=== PATIENT | male | born 1950 | race Caucasian/White ===

== ENCOUNTER 2018-11-29 09:10 | Inpatient (IN) | payer OTHER, MEDICAID, BC ==
[2018-11-29] MEDS: SOD CHLORIDE 0.9% 500 ML IV (09:31)
[2018-11-29] MEDS: morphine 2 MG INJ IV ×3 (09:31→21:46)
[2018-11-29] MEDS: ONDANSETRON 4 MG INJ IV (09:31)
[2018-11-29 09:41] LABS: ADD MAN DIFF? NO
[2018-11-29 10:05] LABS: WHITE BLOOD COUNT 8.4 10^3/ul (4.8-10.8)
[2018-11-29 10:05] LABS: ANION GAP 8 (5-13); BASOPHIL # 0.1 10^3/ul (0.0-0.1); BASOPHILS % 0.8 % (0.0-2.0); BLOOD UREA NITROGEN 19 mg/dl (7-20); CALCIUM 9.3 mg/dl (8.4-10.2); CARBON DIOXIDE 29 mmol/L (21-31); CHLORIDE 102 mmol/L (97-110); CREATININE 1.16 mg/dl (0.61-1.24); EOSINOPHILS # 0.3 10^3/ul (0.0-0.5); EOSINOPHILS % 4.1 % (0.0-7.0); Estimated GFR > 60 mL/min (>60); GLUCOSE 202 mg/dl (70-220); HEMATOCRIT 38.5 % (42.0-52.0); HEMOGLOBIN 12.4 g/dl (14.0-18.0); LYMPHOCYTES # 2.1 10^3/ul (0.8-2.9); LYMPHOCYTES % 25.3 % (15.0-51.0); MEAN CORPUSCULAR HEMOGLOBIN 31.4 pg (29.0-33.0); MEAN CORPUSCULAR HGB CONC 32.2 g/dl (32.0-37.0); MEAN CORPUSCULAR VOLUME 97.5 fl (82.0-101.0); MEAN PLATELET VOLUME 9.5 fl (7.4-10.4); MONOCYTE # 0.7 10^3/ul (0.3-0.9); MONOCYTES % 8.2 % (0.0-11.0); NEUTROPHIL # 5.1 10^3/ul (1.6-7.5); NEUTROPHILS % 61.4 % (39.0-77.0); PLATELET COUNT 221 10^3/UL (140-415); POTASSIUM 5.1 mmol/L (3.5-5.1); RED BLOOD COUNT 3.95 10^6/ul (4.70-6.10); RED CELL DISTRIBUTION WIDTH 11.7 % (11.5-14.5); SODIUM 139 mmol/L (135-144)
[2018-11-29 10:07] LABS: INR 0.96; PROTIME 12.9 Sec (11.9-14.9)
[2018-11-29] MEDS: HYDROmorphONE 0.5 MG/0.5 ML SYG IV ×2 (11:19→11:31)
[2018-11-29] MEDS ORDERED: ONDANSETRON 4 MG INJ IV (13:00)
[2018-11-29] MEDS ORDERED: ACETAMINOPHEN 325 MG TAB PO ×2 (13:00→13:30)
[2018-11-29] MEDS ORDERED: NACL 0.9% 3 ML SYG IV (13:30)
[2018-11-29] MEDS ORDERED: DOCUSATE SODIUM 100 MG CAP PO (13:30)
[2018-11-29] MEDS ORDERED: HYDROCODONE/APAP (5/325) TAB PO (13:30)
[2018-11-29] MEDS ORDERED: MECLIZINE 25 MG TAB PO (13:30)
[2018-11-29 13:41] LABS: HEMOGLOBIN A1C 7.2 % (0-5.9)
[2018-11-29] MEDS ORDERED: DEXTROSE 50% 50 ML SYRINGE IV ×2 (14:30)
[2018-11-29] MEDS ORDERED: GLUCOSE GEL 15 GRAM TUBE BUCCAL (14:30)
[2018-11-29] MEDS ORDERED: GLUCOSE GEL 15 GRAM TUBE PO ×2 (14:30)
[2018-11-29] MEDS ORDERED: GLUCAGON 1 MG INJ IM (14:30)
[2018-11-29] MEDS: DEXTROSE 5%-0.45% NACL 1,000 ML IV (16:22)
[2018-11-29] MEDS: INSULIN ASPART [NOVOLOG] 3 ML PEN SC ×2 (17:17→21:40)
[2018-11-29] MEDS: HYDROCODONE/APAP (5/325) TAB PO (17:24)
[2018-11-29] MEDS: HEPARIN 5,000 UNIT/1 ML VIAL SC (18:33)
[2018-11-29] MEDS: INSULIN GLARGINE [LANTus] (100 UNITS/ML) SYG SC (20:26)
[2018-11-29] MEDS: ATORVASTATIN 20 MG TAB PO (20:27)
[2018-11-30] MEDS: LORAZEPAM 1 MG TAB PO (00:59)
[2018-11-30] MEDS: morphine LIQ (10 MG/5 ML) CUP PO ×4 (01:00→15:27)
[2018-11-30] MEDS ORDERED: PANTOPRAZOLE (EC) 40 MG TAB PO (04:55)
[2018-11-30] MEDS: PANTOPRAZOLE (EC) 40 MG TAB PO (05:40)
[2018-11-30 08:31] LABS: ADD MAN DIFF? NO
[2018-11-30 08:33] LABS: WHITE BLOOD COUNT 11.4 10^3/ul (4.8-10.8)
[2018-11-30 08:33] LABS: BASOPHILS % 0.3 % (0.0-2.0); EOSINOPHILS % 0.2 % (0.0-7.0); HEMATOCRIT 28.1 % (42.0-52.0); HEMOGLOBIN 8.9 g/dl (14.0-18.0); LYMPHOCYTES # 1.8 10^3/ul (0.8-2.9); LYMPHOCYTES % 16.1 % (15.0-51.0); MEAN CORPUSCULAR HGB CONC 31.7 g/dl (32.0-37.0); MEAN CORPUSCULAR VOLUME 97.9 fl (82.0-101.0); MEAN PLATELET VOLUME 9.2 fl (7.4-10.4); MONOCYTE # 1.1 10^3/ul (0.3-0.9); NEUTROPHIL # 8.3 10^3/ul (1.6-7.5); PLATELET COUNT 179 10^3/UL (140-415); RED BLOOD COUNT 2.87 10^6/ul (4.70-6.10); RED CELL DISTRIBUTION WIDTH 11.9 % (11.5-14.5)
[2018-11-30] MEDS: ESCITALOPRAM 10 MG TAB PO (08:42)
[2018-11-30] MEDS: BUPROPION (XL) 150 MG TAB PO (08:42)
[2018-11-30] MEDS: DULOXETINE 30 MG CAP DR PO (08:42)
[2018-11-30] MEDS: INSULIN ASPART [NOVOLOG] 3 ML PEN SC ×4 (08:46→21:00)
[2018-11-30] MEDS: HEPARIN 5,000 UNIT/1 ML VIAL SC ×2 (08:47→21:00)
[2018-11-30 08:56] LABS: ANION GAP 4 (5-13); BLOOD UREA NITROGEN 40 mg/dl (7-20); CALCIUM 8.2 mg/dl (8.4-10.2); CARBON DIOXIDE 30 mmol/L (21-31); CHLORIDE 103 mmol/L (97-110); CREATININE 2.34 mg/dl (0.61-1.24); Estimated GFR 28 mL/min (>60); GLUCOSE 152 mg/dl (70-220); MAGNESIUM 1.8 mg/dl (1.7-2.5); PHOSPHORUS 3.9 mg/dl (2.5-4.9); SODIUM 137 mmol/L (135-144)
[2018-11-30] MEDS ORDERED: ASPIRIN (EC) 81 MG TAB PO (09:00)
[2018-11-30] MEDS: MAGNESIUM HYDROXIDE 30ML CUP PO (12:26)
[2018-11-30] MEDS: DEXTROSE 5%-0.45% NACL 1,000 ML IV (14:07)
[2018-11-30] MEDS: POLYMYXIN/BACITRACIN 1L IRRIG IRR ×2 (19:30→22:35)
[2018-11-30] MEDS ORDERED: morphine SULFATE/PF (10 MG/10 ML) INJ (19:32)
[2018-11-30] MEDS ORDERED: MIDAZOLAM 1 MG/ML 2 ML INJ (19:32)
[2018-11-30] MEDS ORDERED: ROCURONIUM 50 MG INJ ×2 (19:32→21:15)
[2018-11-30] MEDS ORDERED: CEFAZOLIN 1 GM INJ (19:32)
[2018-11-30] MEDS ORDERED: PROPOFOL 20 ML (19:32)
[2018-11-30] MEDS ORDERED: ROPIVACAINE 0.5 % 30 ML VIAL (20:22)
[2018-11-30] MEDS ORDERED: PHENYLephrine (100 MCG/ML) 5ML SYG (20:28)
[2018-11-30] MEDS ORDERED: PHENYLephrine 10 MG INJ (20:32)
[2018-11-30] MEDS ORDERED: METOCLOPRAMIDE 10 MG INJ (20:57)
[2018-11-30] MEDS ORDERED: ONDANSETRON 4 MG INJ (20:57)
[2018-11-30] MEDS ORDERED: DEXAMETHASONE 4 MG/ML 5 ML INJ (20:57)
[2018-11-30] MEDS: INSULIN GLARGINE [LANTus] (100 UNITS/ML) SYG SC (21:00)
[2018-11-30] MEDS: ATORVASTATIN 20 MG TAB PO (21:00)
[2018-11-30] MEDS ORDERED: SUCCINYLCHOLINE CHLORIDE 100 MG/5 ML SYG IV (21:15)
[2018-11-30] MEDS ORDERED: HETASTARCH 6% NACL 500 ML (21:26)
[2018-11-30] MEDS ORDERED: ALBUMIN HUMAN 5% 500 ML (21:26)
[2018-11-30] MEDS ORDERED: HYDROmorphONE 1 MG/5 ML IV SYRINGE IV ×3 (23:30)
[2018-11-30] MEDS ORDERED: ACETAMINOPHEN 500 MG TAB PO (23:30)
[2018-11-30] MEDS ORDERED: EPHEDrine SULFATE 50 MG/5 ML SYG IV (23:30)
[2018-11-30] MEDS ORDERED: LABETALOL HCL 20MG INJ IV (23:30)
[2018-11-30] MEDS ORDERED: OXYCODONE/ACETAMINOPHEN (5/325) TAB PO ×2 (23:30)
[2018-11-30] MEDS ORDERED: DIPHENHYDRAMINE 50 MG INJ IV ×2 (23:30)
[2018-11-30] MEDS ORDERED: hydrALAzine 20 MG INJ IV (23:30)
[2018-11-30] MEDS ORDERED: HYDROmorphONE 0.5 MG/0.5 ML SYG IV ×2 (23:30)
[2018-11-30] MEDS ORDERED: FENTAnyl 50 MCG/ML VIAL IV ×3 (23:30)
[2018-11-30] MEDS ORDERED: HYDROCODONE/APAP (5/325) TAB PO (23:30)
[2018-11-30] MEDS ORDERED: ONDANSETRON 4 MG INJ IV ×2 (23:30)
[2018-11-30] MEDS ORDERED: ALBUMIN HUMAN 5% 250 ML IV (23:30)
[2018-11-30] MEDS ORDERED: METOCLOPRAMIDE 10 MG INJ IV (23:30)
[2018-11-30] MEDS ORDERED: ALBUTEROL 0.083% (NEB) 2.5 MG/3 ML AMP HHN (23:30)
[2018-11-30] MEDS ORDERED: NALBUPHINE HCL (10 MG/1 ML) INJ IV (23:30)
[2018-11-30] MEDS ORDERED: MEPERIDINE 25 MG INJ IV (23:30)
[2018-11-30] MEDS ORDERED: ALBUMIN HUMAN 25% 100 ML (23:51)
[2018-11-30 23:56] LABS: ADD MAN DIFF? NO
[2018-11-30 23:58] LABS: ABNORMAL IP MESSAGE 1; BASOPHILS % 0.3 % (0.0-2.0); HEMATOCRIT 19.8 % (42.0-52.0); LYMPHOCYTES # 0.8 10^3/ul (0.8-2.9); LYMPHOCYTES % 10.3 % (15.0-51.0); MEAN CORPUSCULAR HEMOGLOBIN 31.5 pg (29.0-33.0); MEAN CORPUSCULAR HGB CONC 31.3 g/dl (32.0-37.0); MEAN CORPUSCULAR VOLUME 100.5 fl (82.0-101.0); MEAN PLATELET VOLUME 9.4 fl (7.4-10.4); MONOCYTE # 0.5 10^3/ul (0.3-0.9); NEUTROPHIL # 6.5 10^3/ul (1.6-7.5); PLATELET COUNT 121 10^3/UL (140-415); POSITIVE DIFF @See below; RED BLOOD COUNT 1.97 10^6/ul (4.70-6.10); RED CELL DISTRIBUTION WIDTH 12.1 % (11.5-14.5)
[2018-11-30 23:58] LABS: WHITE BLOOD COUNT 7.9 10^3/ul (4.8-10.8)
[2018-12-01 00:10] LABS: HEMOGLOBIN 6.2 g/dl (14.0-18.0)
[2018-12-01 00:12] LABS: PATH REVIEW? YES
[2018-12-01] MEDS ORDERED: CEFAZOLIN 1 GM INJ (00:12)
[2018-12-01] MEDS ORDERED: SUGAMMADEX SODIUM 200 MG/2 ML VIAL IV (00:35)
[2018-12-01] MEDS ORDERED: oxyCODONE 5 MG TAB PO ×2 (01:00)
[2018-12-01] MEDS ORDERED: NACL 0.9% 3 ML SYG IV (01:00)
[2018-12-01] MEDS ORDERED: HYDROmorphONE 1 MG/ML SYG IV (01:00)
[2018-12-01] MEDS ORDERED: FUROSEMIDE 20 MG INJ (01:01)
[2018-12-01] MEDS ORDERED: ROCURONIUM 50 MG INJ (01:39)
[2018-12-01] MEDS ORDERED: NALOXONE (0.4 MG/ML) INJ (01:39)
[2018-12-01] MEDS ORDERED: SUCCINYLCHOLINE CHLORIDE 100 MG/5 ML SYG IV (01:39)
[2018-12-01] MEDS: SOD CHLORIDE 0.9% 1,000 ML IV ×3 (01:52→14:02)
[2018-12-01] MEDS ORDERED: HYDROmorphONE 0.5 MG/0.5 ML SYG IV ×3 (02:00)
[2018-12-01] MEDS ORDERED: DIPHENHYDRAMINE 50 MG INJ IV (02:00)
[2018-12-01] MEDS ORDERED: EPHEDrine SULFATE 50 MG/5 ML SYG IV (02:00)
[2018-12-01] MEDS ORDERED: ONDANSETRON 4 MG INJ IV (02:00)
[2018-12-01] MEDS ORDERED: LABETALOL HCL 20MG INJ IV (02:00)
[2018-12-01] MEDS ORDERED: MEPERIDINE 25 MG INJ IV (02:00)
[2018-12-01] MEDS ORDERED: METOCLOPRAMIDE 10 MG INJ IV (02:00)
[2018-12-01] MEDS ORDERED: PIPER-TAZO 3.375 GM IV (PMX) 100 ML IVPB (02:00)
[2018-12-01] MEDS ORDERED: FENTAnyl 50 MCG/ML VIAL IV ×3 (02:00)
[2018-12-01] MEDS ORDERED: ALBUTEROL 0.083% (NEB) 2.5 MG/3 ML AMP HHN (02:00)
[2018-12-01] MEDS ORDERED: hydrALAzine 20 MG INJ IV (02:00)
[2018-12-01] MEDS: NALOXONE (0.4 MG/ML) INJ IV (02:10)
[2018-12-01] MEDS: FUROSEMIDE 20 MG INJ IV (02:12)
[2018-12-01] MEDS: CEFAZOLIN 2 GM/50 ML (PMX) 50 ML IVPB ×3 (02:28→17:24)
[2018-12-01 02:52] LABS: AADO2 Arterial 570.8 mmHg (7.0-24.0); Allen Test ACCEPTAB; Arterial Base Excess -7.8 mmol/L (-3.0-3); Arterial Blood Gas Oxygen Sat 93.8 mmHG (95.0-98.0); Arterial COHb 0.9 % (0.0-3.0); Arterial Fraction of Oxyhgb 92.7 % (93.0-99.0); Arterial HCO3 20.2 mmol/L (22.0-26.0); Arterial MetHb 0.3 % (0.0-1.5); Arterial pCO2 54.3 mmhg (35-45); MODE VENT - AC; Site Right Radial
[2018-12-01] MEDS: PIPER-TAZO 2.25 GM/NS 50 ML IVPB ×4 (03:09→18:11)
[2018-12-01 05:29] LABS: ADD MAN DIFF? NO
[2018-12-01 05:34] LABS: WHITE BLOOD COUNT 7.2 10^3/ul (4.8-10.8)
[2018-12-01 05:34] LABS: ABNORMAL IP MESSAGE 1; BASOPHILS % 0.4 % (0.0-2.0); HEMATOCRIT 31.5 % (42.0-52.0); HEMOGLOBIN 9.8 g/dl (14.0-18.0); LYMPHOCYTES # 0.5 10^3/ul (0.8-2.9); LYMPHOCYTES % 6.4 % (15.0-51.0); MEAN CORPUSCULAR HEMOGLOBIN 30.4 pg (29.0-33.0); MEAN CORPUSCULAR HGB CONC 31.1 g/dl (32.0-37.0); MEAN CORPUSCULAR VOLUME 97.8 fl (82.0-101.0); MEAN PLATELET VOLUME 10.2 fl (7.4-10.4); MONOCYTE # 0.4 10^3/ul (0.3-0.9); MONOCYTES % 5.7 % (0.0-11.0); NEUTROPHIL # 6.3 10^3/ul (1.6-7.5); NEUTROPHILS % 87.1 % (39.0-77.0); PLATELET COUNT 104 10^3/UL (140-415); POSITIVE DIFF @See below; RED BLOOD COUNT 3.22 10^6/ul (4.70-6.10); RED CELL DISTRIBUTION WIDTH 13.9 % (11.5-14.5)
[2018-12-01 05:45] LABS: ANION GAP 13 (5-13); BLOOD UREA NITROGEN 42 mg/dl (7-20); CALCIUM 6.7 mg/dl (8.4-10.2); CARBON DIOXIDE 21 mmol/L (21-31); CHLORIDE 105 mmol/L (97-110); CREATININE 1.53 mg/dl (0.61-1.24); Estimated GFR 45 mL/min (>60); GLUCOSE 313 mg/dl (70-220); POTASSIUM 5.5 mmol/L (3.5-5.1); SODIUM 139 mmol/L (135-144)
[2018-12-01] MEDS: PANTOPRAZOLE (EC) 40 MG TAB PO (06:46)
[2018-12-01 08:03] LABS: AADO2 Arterial 584.8 mmHg (7.0-24.0); Allen Test ACCEPTAB; Arterial Base Excess -7.5 mmol/L (-3.0-3); Arterial Blood Gas Oxygen Sat 94.7 mmHG (95.0-98.0); Arterial COHb 0.1 % (0.0-3.0); Arterial Fraction of Oxyhgb 94.2 % (93.0-99.0); Arterial HCO3 19.3 mmol/L (22.0-26.0); Arterial MetHb 0.4 % (0.0-1.5); Arterial pCO2 44.9 mmhg (35-45); MODE VENT - AC; Site Right Radial
[2018-12-01] MEDS: HEPARIN 5,000 UNIT/1 ML VIAL SC (09:00)
[2018-12-01] MEDS: ENOXAPARIN 40 MG/0.4 ML SYG SC (09:00)
[2018-12-01] MEDS: INSULIN ASPART [NOVOLOG] 3 ML PEN SC ×3 (09:14→16:21)
[2018-12-01] MEDS: BUPROPION (XL) 150 MG TAB PO (09:32)
[2018-12-01] MEDS: DULOXETINE 30 MG CAP DR PO (09:32)
[2018-12-01] MEDS: ESCITALOPRAM 10 MG TAB PO (09:33)
[2018-12-01 09:57] LABS: ANISOCYTOSIS 2+ (0-0); BAND NEUTROPHILS #M 2.8 10^3/ul (0.0-0.6); BAND NEUTROPHILS % (M) 40 % (0-4); BURR CELLS 1+ (0-0); GIANT THROMBO% (M) 1 % (0-0); LYMPHOCYTES #M 0.4 10^3/ul (0.8-2.9); LYMPHOCYTES % (M) 6 % (15-51); METAMYELOCYTES #M 0.1 10^3/ul (0.0-0.0); METAMYELOCYTES %M 2 % (0-0); MICROCYTOSIS 1+ (0-0); MONOCYTE #M 0.3 10^3/ul (0.3-0.9); MONOCYTES % (M) 5 % (0-11); PLATELET ESTIMATE DECREASED; POIKILOCYTOSIS 2+ (0-0); POLYCHROMASIA 1+ (0-0); SEG NEUT #M 3.6 10^3/ul (1.6-7.5); SEGMENTED NEUTROPHILS (M) % 47 % (39-77); SMUDGE%M 3 % (0-0)
[2018-12-01] MEDS: LIDOCAINE 1% (MPF) 5 ML VIAL SC (10:00)
[2018-12-01] MEDS: SOD CHLORIDE 0.9% 500 ML IV (12:09)
[2018-12-01] MEDS ORDERED: NORepinephrine 8MG/250 ML (PMX 250 ML (13:03)
[2018-12-01] MEDS: FENTAnyl (DRIP) 1000 mcg/100mL 100 ML IV (13:09)
[2018-12-01] MEDS: NORepinephrine 8MG/250 ML (PMX 250 ML IV (13:10)
[2018-12-01 14:32] LABS: WHITE BLOOD COUNT 10.7 10^3/ul (4.8-10.8)
[2018-12-01 14:32] LABS: ABNORMAL IP MESSAGE 1; HEMATOCRIT 24.8 % (42.0-52.0); HEMOGLOBIN 7.9 g/dl (14.0-18.0); MEAN CORPUSCULAR HEMOGLOBIN 30.5 pg (29.0-33.0); MEAN CORPUSCULAR HGB CONC 31.9 g/dl (32.0-37.0); MEAN CORPUSCULAR VOLUME 95.8 fl (82.0-101.0); MEAN PLATELET VOLUME 10.6 fl (7.4-10.4); PLATELET COUNT 109 10^3/UL (140-415); POSITIVE DIFF @See below; RED BLOOD COUNT 2.59 10^6/ul (4.70-6.10); RED CELL DISTRIBUTION WIDTH 14.5 % (11.5-14.5)
[2018-12-01 14:37] LABS: ADD MAN DIFF? YES
[2018-12-01] MEDS: ACCU-CHEK XX ×10 (14:52→23:00)
[2018-12-01] MEDS: INSULIN HUMAN REGULAR 100 UNIT in SOD CHLORIDE 0.9% 99 ML IV (14:54)
[2018-12-01 14:58] LABS: ANION GAP 11 (5-13); BLOOD UREA NITROGEN 52 mg/dl (7-20); CALCIUM 6.4 mg/dl (8.4-10.2); CARBON DIOXIDE 21 mmol/L (21-31); CHLORIDE 108 mmol/L (97-110); CREATININE 2.02 mg/dl (0.61-1.24); Estimated GFR 33 mL/min (>60); GLUCOSE 275 mg/dl (70-220); POTASSIUM 4.3 mmol/L (3.5-5.1); SODIUM 140 mmol/L (135-144)
[2018-12-01 15:50] LABS: AADO2 Arterial 284.8 mmHg (7.0-24.0); Allen Test ACCEPTAB; Arterial Base Excess -3.1 mmol/L (-3.0-3); Arterial COHb 0.3 % (0.0-3.0); Arterial Fraction of Oxyhgb 96.2 % (93.0-99.0); Arterial HCO3 21.2 mmol/L (22.0-26.0); Arterial MetHb 0.5 % (0.0-1.5); Arterial pCO2 34.6 mmhg (35-45); MODE VENT - AC; Site Right Radial
[2018-12-01] MEDS: ATORVASTATIN 20 MG TAB PO (21:23)
[2018-12-01 23:22] LABS: ACANTHOCYTES 1+ (0-0); ANISOCYTOSIS 1+ (0-0); BAND NEUTROPHILS #M 4.8 10^3/ul (0.0-0.6); BAND NEUTROPHILS % (M) 45 % (0-4); BURR CELLS 1+ (0-0); GIANT THROMBO% (M) 2 % (0-0); LYMPHOCYTES #M 1.3 10^3/ul (0.8-2.9); LYMPHOCYTES % (M) 13 % (15-51); METAMYELOCYTES #M 0.2 10^3/ul (0.0-0.0); METAMYELOCYTES %M 2 % (0-0); MONOCYTE #M 0.1 10^3/ul (0.3-0.9); MONOCYTES % (M) 1 % (0-11); PLATELET ESTIMATE SIG DECREASED; POIKILOCYTOSIS 3+ (0-0); POLYCHROMASIA 1+ (0-0); SEG NEUT #M 4.7 10^3/ul (1.6-7.5); SEGMENTED NEUTROPHILS (M) % 39 % (39-77); SMUDGE%M 10 % (0-0)
[2018-12-02] MEDS: PIPER-TAZO 2.25 GM/NS 50 ML IVPB ×4 (00:10→18:18)
[2018-12-02] MEDS: ACCU-CHEK XX ×24 (01:00→23:00)
[2018-12-02] MEDS: SOD CHLORIDE 0.9% 1,000 ML IV (01:35)
[2018-12-02] MEDS: PANTOPRAZOLE 40 MG INJ IV (05:13)
[2018-12-02 05:34] LABS: INR 1.67; PROTIME 19.8 Sec (11.9-14.9); PT RATIO 1.5
[2018-12-02 06:15] LABS: ABNORMAL IP MESSAGE 1; HEMATOCRIT 21.2 % (42.0-52.0); MEAN CORPUSCULAR HGB CONC 32.1 g/dl (32.0-37.0); MEAN CORPUSCULAR VOLUME 93.4 fl (82.0-101.0); MEAN PLATELET VOLUME 10.3 fl (7.4-10.4); PLATELET COUNT 102 10^3/UL (140-415); POSITIVE DIFF @See below; RED BLOOD COUNT 2.27 10^6/ul (4.70-6.10); RED CELL DISTRIBUTION WIDTH 14.6 % (11.5-14.5)
[2018-12-02 06:17] LABS: ANION GAP 9 (5-13); BLOOD UREA NITROGEN 53 mg/dl (7-20); CALCIUM 6.5 mg/dl (8.4-10.2); CARBON DIOXIDE 22 mmol/L (21-31); CHLORIDE 112 mmol/L (97-110); CREATININE 1.81 mg/dl (0.61-1.24); Estimated GFR 37 mL/min (>60); GLUCOSE 108 mg/dl (70-220); POTASSIUM 4.2 mmol/L (3.5-5.1); SODIUM 143 mmol/L (135-144)
[2018-12-02 06:25] LABS: HEMOGLOBIN 6.8 g/dl (14.0-18.0)
[2018-12-02 06:26] LABS: ADD MAN DIFF? YES
[2018-12-02] MEDS: FENTAnyl (DRIP) 1000 mcg/100mL 100 ML IV ×2 (06:50→23:36)
[2018-12-02 07:59] LABS: BAND NEUTROPHILS % (M) 28 % (0-4); LYMPHOCYTES #M 3.1 10^3/ul (0.8-2.9); LYMPHOCYTES % (M) 29 % (15-51); MICROCYTOSIS 1+ (0-0); MONOCYTE #M 0.3 10^3/ul (0.3-0.9); MONOCYTES % (M) 3 % (0-11); MYELOCYTES #M 0.1 10^3/ul (0.0-0.0); MYELOCYTES % (M) 1 % (0-0); PLATELET ESTIMATE DECREASED; REACTIVE LYMPHOCYTES #M 0.1 10^3/ul (0.0-0.0); REACTIVE LYMPHOCYTES% (M) 1 % (0-0); SEG NEUT #M 4.5 10^3/ul (1.6-7.5); SEGMENTED NEUTROPHILS (M) % 38 % (39-77); SMUDGE%M 8 % (0-0); SPHEROCYTES 1+ (0-0); TARGET CELLS 1+ (0-0)
[2018-12-02 08:33] LABS: AADO2 Arterial 152.4 mmHg (7.0-24.0); Allen Test ACCEPTAB; Arterial Base Excess -0.9 mmol/L (-3.0-3); Arterial Blood Gas Oxygen Sat 96.2 mmHG (95.0-98.0); Arterial COHb 0.5 % (0.0-3.0); Arterial Fraction of Oxyhgb 95.1 % (93.0-99.0); Arterial HCO3 23.4 mmol/L (22.0-26.0); Arterial MetHb 0.6 % (0.0-1.5); Arterial pCO2 36.5 mmhg (35-45); MODE VENT - AC; Site Right Radial
[2018-12-02] MEDS: DULOXETINE 30 MG CAP DR PO (08:48)
[2018-12-02] MEDS: ESCITALOPRAM 10 MG TAB PO (08:48)
[2018-12-02] MEDS: BUPROPION (XL) 150 MG TAB PO (08:48)
[2018-12-02] MEDS: ENOXAPARIN 40 MG/0.4 ML SYG SC (09:00)
[2018-12-02 10:14] LABS: IMMEDIATE SPIN CROSSMATCH 1
[2018-12-02] MEDS: FUROSEMIDE 20 MG INJ IV (10:46)
[2018-12-02] MEDS: PHYTONADIONE 10 MG in DEXTROSE 5% 50 ML IVPB (11:11)
[2018-12-02] MEDS: CALCIUM GLUCONATE 10% 2 GM in DEXTROSE 5% 100 ML IVPB (11:47)
[2018-12-02 15:19] LABS: D-DIMER 3818.94 ng/ml (<460)
[2018-12-02 16:44] LABS: FIBRIN SPLIT PRODUCT >10 and <40 ug/ml (<10)
[2018-12-02 16:45] LABS: SODIUM,URINE RANDOM 53 mmol/L (30-90)
[2018-12-02 16:46] LABS: IMMEDIATE SPIN CROSSMATCH 1 4
[2018-12-02 16:47] LABS: CREATININE,URINE RANDOM 65.14 mg/dl (20-370)
[2018-12-02 19:05] LABS: WHITE BLOOD COUNT 10.5 10^3/ul (4.8-10.8)
[2018-12-02 19:05] LABS: HEMATOCRIT 26.9 % (42.0-52.0); HEMOGLOBIN 8.8 g/dl (14.0-18.0); MEAN CORPUSCULAR HEMOGLOBIN 30.1 pg (29.0-33.0); MEAN CORPUSCULAR HGB CONC 32.7 g/dl (32.0-37.0); MEAN CORPUSCULAR VOLUME 92.1 fl (82.0-101.0); MEAN PLATELET VOLUME 10.3 fl (7.4-10.4); NUCLEATED RED BLOOD CELLS% 0.4 /100WBC (0.0-0.0); PLATELET COUNT 102 10^3/UL (140-415); POSITIVE DIFF @See below; RED BLOOD COUNT 2.92 10^6/ul (4.70-6.10); RED CELL DISTRIBUTION WIDTH 15.4 % (11.5-14.5)
[2018-12-02 19:12] LABS: ADD MAN DIFF? YES
[2018-12-02 19:49] LABS: ANISOCYTOSIS 1+ (0-0); BAND NEUTROPHILS #M 2.3 10^3/ul (0.0-0.6); BAND NEUTROPHILS % (M) 22 % (0-4); ERYTHROBLAST% (NRBC) (M) 2 % (0-0); GIANT THROMBO% (M) 2 % (0-0); LYMPHOCYTES #M 1.9 10^3/ul (0.8-2.9); LYMPHOCYTES % (M) 19 % (15-51); MONOCYTE #M 0.7 10^3/ul (0.3-0.9); MONOCYTES % (M) 7 % (0-11); PLATELET ESTIMATE DECREASED; POLYCHROMASIA 1+ (0-0); SEG NEUT #M 5.7 10^3/ul (1.6-7.5); SEGMENTED NEUTROPHILS (M) % 52 % (39-77); SMUDGE%M 4 % (0-0)
[2018-12-02] MEDS: INSULIN GLARGINE [LANTus] (100 UNITS/ML) SYG SC (21:56)
[2018-12-02] MEDS: ATORVASTATIN 20 MG TAB PO (21:57)
[2018-12-03] MEDS: PIPER-TAZO 2.25 GM/NS 50 ML IVPB ×3 (01:23→11:42)
[2018-12-03] MEDS: PANTOPRAZOLE 40 MG INJ IV (05:19)
[2018-12-03] MEDS: SOD CHLORIDE 0.9% 1,000 ML IV ×2 (05:19→07:40)
[2018-12-03 05:29] LABS: ADD MAN DIFF? NO
[2018-12-03] MEDS: ACCU-CHEK XX ×2 (05:30→09:16)
[2018-12-03 05:42] LABS: BASOPHILS % 0.1 % (0.0-2.0); EOSINOPHILS % 0.2 % (0.0-7.0); HEMATOCRIT 27.8 % (42.0-52.0); LYMPHOCYTES # 1.4 10^3/ul (0.8-2.9); LYMPHOCYTES % 12.6 % (15.0-51.0); MEAN CORPUSCULAR HEMOGLOBIN 29.6 pg (29.0-33.0); MEAN CORPUSCULAR HGB CONC 32.4 g/dl (32.0-37.0); MEAN CORPUSCULAR VOLUME 91.4 fl (82.0-101.0); MEAN PLATELET VOLUME 10.4 fl (7.4-10.4); MONOCYTE # 0.9 10^3/ul (0.3-0.9); MONOCYTES % 7.8 % (0.0-11.0); NEUTROPHIL # 8.6 10^3/ul (1.6-7.5); NEUTROPHILS % 78.6 % (39.0-77.0); NUCLEATED RED BLOOD CELLS% 0.4 /100WBC (0.0-0.0); PLATELET COUNT 113 10^3/UL (140-415); POSITIVE DIFF @See below; RED BLOOD COUNT 3.04 10^6/ul (4.70-6.10); RED CELL DISTRIBUTION WIDTH 15.4 % (11.5-14.5)
[2018-12-03 05:42] LABS: WHITE BLOOD COUNT 10.9 10^3/ul (4.8-10.8)
[2018-12-03 05:50] LABS: ANION GAP 6 (5-13); BLOOD UREA NITROGEN 37 mg/dl (7-20); CALCIUM 7.6 mg/dl (8.4-10.2); CARBON DIOXIDE 26 mmol/L (21-31); CHLORIDE 115 mmol/L (97-110); CREATININE 1.19 mg/dl (0.61-1.24); Estimated GFR > 60 mL/min (>60); GLUCOSE 83 mg/dl (70-220); POTASSIUM 3.8 mmol/L (3.5-5.1); SODIUM 147 mmol/L (135-144)
[2018-12-03 05:58] LABS: CREATINE KINASE 1019 IU/L (23-200)
[2018-12-03 05:58] LABS: URIC ACID 5.1 mg/dl (3.1-7.9)
[2018-12-03 06:12] LABS: INR 1.18; PROTIME 15.1 Sec (11.9-14.9); PT RATIO 1.2
[2018-12-03 07:04] LABS: ALANINE AMINOTRANSFERASE 23 IU/L (13-69); ALBUMIN 2.7 g/dl (3.3-4.9); ALKALINE PHOSPHATASE 47 IU/L (42-121); ASPARTATE AMINO TRANSFERASE 41 IU/L (15-46); BILIRUBIN,INDIRECT 0.5 mg/dl (0-1.1); BILIRUBIN,TOTAL 0.5 mg/dl (0.2-1.3); TOTAL PROTEIN 5.9 g/dl (6.1-8.1)
[2018-12-03] MEDS: morphine 2 MG INJ IV (08:20)
[2018-12-03] MEDS: INSULIN ASPART [NOVOLOG] 3 ML PEN SC ×4 (09:00→21:00)
[2018-12-03] MEDS ORDERED: D5W-0.45 NACL + KCL 20 MEQ 1,000 ML IV (09:30)
[2018-12-03] MEDS ORDERED: 1/2 NS + KCL 20 MEQ 1,000 ML IV (09:30)
[2018-12-03] MEDS: PHYTONADIONE 10 MG in DEXTROSE 5% 50 ML IVPB (09:41)
[2018-12-03] MEDS: ESCITALOPRAM 10 MG TAB PO (09:41)
[2018-12-03 09:43] LABS: AADO2 Arterial 100.9 mmHg (7.0-24.0); Allen Test ACCEPTAB; Arterial Base Excess -0.1 mmol/L (-3.0-3); Arterial Blood Gas Oxygen Sat 90.5 mmHG (95.0-98.0); Arterial COHb 0 % (0.0-3.0); Arterial Fraction of Oxyhgb 90.3 % (93.0-99.0); Arterial HCO3 24.9 mmol/L (22.0-26.0); Arterial MetHb 0.2 % (0.0-1.5); Blood Gas PS 10; MODE VENT - CPAP; Site Right Radial
[2018-12-03 10:12] LABS: ANISOCYTOSIS 1+ (0-0); BAND NEUTROPHILS #M 1.4 10^3/ul (0.0-0.6); BAND NEUTROPHILS % (M) 13 % (0-4); LYMPHOCYTES % (M) 10 % (15-51); MONOCYTE #M 0.4 10^3/ul (0.3-0.9); MONOCYTES % (M) 4 % (0-11); PLATELET ESTIMATE DECREASED; POIKILOCYTOSIS 1+ (0-0); POLYCHROMASIA 3+ (0-0); SEG NEUT #M 8.1 10^3/ul (1.6-7.5); SEGMENTED NEUTROPHILS (M) % 73 % (39-77); TARGET CELLS 1+ (0-0)
[2018-12-03] MEDS: oxyCODONE 5 MG TAB PO (10:16)
[2018-12-03] MEDS: DULOXETINE 30 MG CAP DR PO (10:17)
[2018-12-03] MEDS: BUPROPION (XL) 150 MG TAB PO (10:17)
[2018-12-03] MEDS: D5W-0.45 NACL + KCL 20 MEQ 1,000 ML IV ×2 (10:30→21:18)
[2018-12-03] MEDS ORDERED: BISACODYL 10 MG SUPP PR (11:00)
[2018-12-03] MEDS ORDERED: POLYETHYLENE GLYCOL 17 GM PACKET PO (11:00)
[2018-12-03] MEDS: PHENYLephrine (100 MCG/ML) 5ML SYG (14:42)
[2018-12-03] MEDS: PIPER-TAZO 3.375 GM IV (PMX) 100 ML IVPB (17:59)
[2018-12-03] MEDS: DOCUSATE SODIUM 100 MG CAP PO (20:40)
[2018-12-03] MEDS: ATORVASTATIN 20 MG TAB PO (20:40)
[2018-12-03] MEDS: INSULIN GLARGINE [LANTus] (100 UNITS/ML) SYG SC (21:23)
[2018-12-04] MEDS: INSULIN ASPART [NOVOLOG] 3 ML PEN SC ×6 (00:54→21:19)
[2018-12-04] MEDS: PIPER-TAZO 3.375 GM IV (PMX) 100 ML IVPB ×3 (01:45→17:19)
[2018-12-04] MEDS: PANTOPRAZOLE 40 MG INJ IV (05:47)
[2018-12-04 06:20] LABS: ADD MAN DIFF? NO
[2018-12-04 06:34] LABS: BASOPHILS % 0.1 % (0.0-2.0); EOSINOPHILS # 0.1 10^3/ul (0.0-0.5); EOSINOPHILS % 0.9 % (0.0-7.0); HEMATOCRIT 30.3 % (42.0-52.0); HEMOGLOBIN 9.4 g/dl (14.0-18.0); LYMPHOCYTES # 1.4 10^3/ul (0.8-2.9); LYMPHOCYTES % 10.5 % (15.0-51.0); MEAN CORPUSCULAR VOLUME 96.8 fl (82.0-101.0); MEAN PLATELET VOLUME 9.9 fl (7.4-10.4); MONOCYTE # 0.8 10^3/ul (0.3-0.9); MONOCYTES % 5.7 % (0.0-11.0); NEUTROPHIL # 11.1 10^3/ul (1.6-7.5); NEUTROPHILS % 81.8 % (39.0-77.0); PLATELET COUNT 109 10^3/UL (140-415); RED BLOOD COUNT 3.13 10^6/ul (4.70-6.10); RED CELL DISTRIBUTION WIDTH 15.2 % (11.5-14.5)
[2018-12-04 06:34] LABS: WHITE BLOOD COUNT 13.5 10^3/ul (4.8-10.8)
[2018-12-04 06:41] LABS: INR 1.11; PROTIME 14.4 Sec (11.9-14.9); PT RATIO 1.1
[2018-12-04 07:58] LABS: ANION GAP 8 (5-13); BLOOD UREA NITROGEN 28 mg/dl (7-20); CALCIUM 7.8 mg/dl (8.4-10.2); CARBON DIOXIDE 25 mmol/L (21-31); CHLORIDE 116 mmol/L (97-110); CREATININE 0.98 mg/dl (0.61-1.24); Estimated GFR > 60 mL/min (>60); GLUCOSE 104 mg/dl (70-220); SODIUM 149 mmol/L (135-144)
[2018-12-04] MEDS: DULOXETINE 30 MG CAP DR PO (09:18)
[2018-12-04] MEDS: ESCITALOPRAM 10 MG TAB PO (09:18)
[2018-12-04] MEDS: DOCUSATE SODIUM 100 MG CAP PO ×2 (09:18→21:16)
[2018-12-04] MEDS: BUPROPION (XL) 150 MG TAB PO (09:18)
[2018-12-04] MEDS: D5W-0.45 NACL + KCL 20 MEQ 1,000 ML IV ×2 (12:10→15:54)
[2018-12-04] MEDS: PHYTONADIONE 10 MG in DEXTROSE 5% 50 ML IVPB (12:41)
[2018-12-04] MEDS: ONDANSETRON 4 MG INJ IV (17:18)
[2018-12-04] MEDS: ATORVASTATIN 20 MG TAB PO (21:16)
[2018-12-04] MEDS: INSULIN GLARGINE [LANTus] (100 UNITS/ML) SYG SC (21:19)
[2018-12-05] MEDS: D5W-0.45 NACL + KCL 20 MEQ 1,000 ML IV (01:30)
[2018-12-05] MEDS: INSULIN ASPART [NOVOLOG] 3 ML PEN SC ×6 (01:44→21:11)
[2018-12-05] MEDS: PIPER-TAZO 3.375 GM IV (PMX) 100 ML IVPB ×3 (01:48→17:43)
[2018-12-05] MEDS: PANTOPRAZOLE 40 MG INJ IV (05:43)
[2018-12-05 06:28] LABS: ADD MAN DIFF? NO
[2018-12-05 06:40] LABS: WHITE BLOOD COUNT 12.7 10^3/ul (4.8-10.8)
[2018-12-05 06:40] LABS: BASOPHILS % 0.2 % (0.0-2.0); EOSINOPHILS # 0.2 10^3/ul (0.0-0.5); EOSINOPHILS % 1.3 % (0.0-7.0); HEMATOCRIT 29.3 % (42.0-52.0); HEMOGLOBIN 9.2 g/dl (14.0-18.0); LYMPHOCYTES # 1.5 10^3/ul (0.8-2.9); LYMPHOCYTES % 11.8 % (15.0-51.0); MEAN CORPUSCULAR HEMOGLOBIN 29.9 pg (29.0-33.0); MEAN CORPUSCULAR HGB CONC 31.4 g/dl (32.0-37.0); MEAN CORPUSCULAR VOLUME 95.1 fl (82.0-101.0); MONOCYTE # 0.9 10^3/ul (0.3-0.9); MONOCYTES % 7.2 % (0.0-11.0); NEUTROPHIL # 9.9 10^3/ul (1.6-7.5); NEUTROPHILS % 78.2 % (39.0-77.0); NUCLEATED RED BLOOD CELLS% 0.3 /100WBC (0.0-0.0); PLATELET COUNT 134 10^3/UL (140-415); RED BLOOD COUNT 3.08 10^6/ul (4.70-6.10); RED CELL DISTRIBUTION WIDTH 14.6 % (11.5-14.5)
[2018-12-05 06:57] LABS: INR 1.19; PROTIME 15.2 Sec (11.9-14.9); PT RATIO 1.2
[2018-12-05 07:11] LABS: ANION GAP 3 (5-13); BLOOD UREA NITROGEN 24 mg/dl (7-20); CALCIUM 8.1 mg/dl (8.4-10.2); CARBON DIOXIDE 30 mmol/L (21-31); CHLORIDE 116 mmol/L (97-110); CREATININE 0.98 mg/dl (0.61-1.24); Estimated GFR > 60 mL/min (>60); GLUCOSE 112 mg/dl (70-220); POTASSIUM 3.9 mmol/L (3.5-5.1); SODIUM 149 mmol/L (135-144)
[2018-12-05] MEDS: DULOXETINE 30 MG CAP DR PO (09:45)
[2018-12-05] MEDS: ESCITALOPRAM 10 MG TAB PO (09:45)
[2018-12-05] MEDS: DOCUSATE SODIUM 100 MG CAP PO ×2 (09:45→21:11)
[2018-12-05] MEDS: BUPROPION (XL) 150 MG TAB PO (09:46)
[2018-12-05 10:43] LABS: Allen Test ACCEPTAB; Arterial Base Excess 0.9 mmol/L (-3.0-3); Arterial Blood Gas Oxygen Sat 91.8 mmHG (95.0-98.0); Arterial COHb 0.1 % (0.0-3.0); Arterial Fraction of Oxyhgb 91.4 % (93.0-99.0); Arterial HCO3 25.4 mmol/L (22.0-26.0); Arterial MetHb 0.3 % (0.0-1.5); Arterial pCO2 40.2 mmhg (35-45); MODE NASAL CANNULA; Site Right Radial
[2018-12-05] MEDS ORDERED: ALBUTEROL/IPRATROPIUM (NEB) 3 ML AMP HHN (11:30)
[2018-12-05] MEDS: SOD CHLORIDE 0.9% 100 ML (11:47)
[2018-12-05] MEDS: IOHEXOL 100 ML (11:48)
[2018-12-05] MEDS: INSULIN GLARGINE [LANTus] (100 UNITS/ML) SYG SC (21:10)
[2018-12-05] MEDS: ATORVASTATIN 20 MG TAB PO (21:11)
[2018-12-05] MEDS: morphine 2 MG INJ IV (21:19)
[2018-12-06] MEDS: HYDROCODONE/APAP (5/325) TAB PO ×2 (00:38→20:16)
[2018-12-06] MEDS: PIPER-TAZO 3.375 GM IV (PMX) 100 ML IVPB ×3 (01:49→17:51)
[2018-12-06] MEDS: ACCU-CHEK XX (01:50)
[2018-12-06 05:56] LABS: ADD MAN DIFF? NO
[2018-12-06 06:01] LABS: BASOPHILS % 0.3 % (0.0-2.0); EOSINOPHILS # 0.3 10^3/ul (0.0-0.5); EOSINOPHILS % 2.6 % (0.0-7.0); HEMOGLOBIN 9.2 g/dl (14.0-18.0); LYMPHOCYTES # 1.8 10^3/ul (0.8-2.9); LYMPHOCYTES % 14.3 % (15.0-51.0); MEAN CORPUSCULAR HEMOGLOBIN 30.2 pg (29.0-33.0); MEAN CORPUSCULAR HGB CONC 31.7 g/dl (32.0-37.0); MEAN CORPUSCULAR VOLUME 95.1 fl (82.0-101.0); MEAN PLATELET VOLUME 10.4 fl (7.4-10.4); MONOCYTES % 8.1 % (0.0-11.0); NEUTROPHIL # 9.1 10^3/ul (1.6-7.5); NEUTROPHILS % 72.9 % (39.0-77.0); NUCLEATED RED BLOOD CELLS% 0.3 /100WBC (0.0-0.0); PLATELET COUNT 163 10^3/UL (140-415); RED BLOOD COUNT 3.05 10^6/ul (4.70-6.10); RED CELL DISTRIBUTION WIDTH 14.2 % (11.5-14.5)
[2018-12-06 06:01] LABS: WHITE BLOOD COUNT 12.5 10^3/ul (4.8-10.8)
[2018-12-06] MEDS: PANTOPRAZOLE 40 MG INJ IV (06:15)
[2018-12-06 06:17] LABS: INR 0.94; PROTIME 12.7 Sec (11.9-14.9)
[2018-12-06 06:20] LABS: ANION GAP 10 (5-13); BLOOD UREA NITROGEN 21 mg/dl (7-20); CALCIUM 7.9 mg/dl (8.4-10.2); CARBON DIOXIDE 28 mmol/L (21-31); CHLORIDE 106 mmol/L (97-110); CREATININE 0.92 mg/dl (0.61-1.24); Estimated GFR > 60 mL/min (>60); GLUCOSE 145 mg/dl (70-220); POTASSIUM 4.1 mmol/L (3.5-5.1); SODIUM 144 mmol/L (135-144)
[2018-12-06] MEDS: INSULIN ASPART [NOVOLOG] 3 ML PEN SC ×4 (08:00→20:16)
[2018-12-06] MEDS: ESCITALOPRAM 10 MG TAB PO (08:07)
[2018-12-06] MEDS: DOCUSATE SODIUM 100 MG CAP PO ×2 (08:07→20:16)
[2018-12-06] MEDS: DULOXETINE 30 MG CAP DR PO (08:07)
[2018-12-06] MEDS: BUPROPION (XL) 150 MG TAB PO (08:08)
[2018-12-06] MEDS: ENOXAPARIN 40 MG/0.4 ML SYG SC (08:09)
[2018-12-06] MEDS: FUROSEMIDE 40 MG INJ IV (15:54)
[2018-12-06] MEDS: INSULIN GLARGINE [LANTus] (100 UNITS/ML) SYG SC (20:12)
[2018-12-06] MEDS: ATORVASTATIN 20 MG TAB PO (20:16)
[2018-12-07] MEDS: PIPER-TAZO 3.375 GM IV (PMX) 100 ML IVPB ×3 (02:08→18:26)
[2018-12-07] MEDS: ACCU-CHEK XX (02:09)
[2018-12-07] MEDS: PANTOPRAZOLE (EC) 40 MG TAB PO (05:58)
[2018-12-07 06:40] LABS: ADD MAN DIFF? NO
[2018-12-07 06:46] LABS: BASOPHILS % 0.4 % (0.0-2.0); EOSINOPHILS # 0.3 10^3/ul (0.0-0.5); EOSINOPHILS % 2.6 % (0.0-7.0); HEMATOCRIT 30.1 % (42.0-52.0); HEMOGLOBIN 9.7 g/dl (14.0-18.0); LYMPHOCYTES # 1.3 10^3/ul (0.8-2.9); MEAN CORPUSCULAR HEMOGLOBIN 30.5 pg (29.0-33.0); MEAN CORPUSCULAR HGB CONC 32.2 g/dl (32.0-37.0); MEAN CORPUSCULAR VOLUME 94.7 fl (82.0-101.0); MEAN PLATELET VOLUME 10.1 fl (7.4-10.4); MONOCYTE # 0.8 10^3/ul (0.3-0.9); MONOCYTES % 7.2 % (0.0-11.0); NEUTROPHIL # 8.3 10^3/ul (1.6-7.5); NEUTROPHILS % 76.4 % (39.0-77.0); PLATELET COUNT 180 10^3/UL (140-415); RED BLOOD COUNT 3.18 10^6/ul (4.70-6.10); RED CELL DISTRIBUTION WIDTH 13.6 % (11.5-14.5)
[2018-12-07 06:46] LABS: WHITE BLOOD COUNT 10.8 10^3/ul (4.8-10.8)
[2018-12-07 07:04] LABS: INR 1.17; PT RATIO 1.2
[2018-12-07 07:14] LABS: ANION GAP 13 (5-13); BLOOD UREA NITROGEN 19 mg/dl (7-20); CALCIUM 8.1 mg/dl (8.4-10.2); CARBON DIOXIDE 31 mmol/L (21-31); CHLORIDE 101 mmol/L (97-110); Estimated GFR > 60 mL/min (>60); GLUCOSE 138 mg/dl (70-220); POTASSIUM 3.3 mmol/L (3.5-5.1); SODIUM 145 mmol/L (135-144)
[2018-12-07] MEDS: INSULIN ASPART [NOVOLOG] 3 ML PEN SC ×4 (08:00→21:05)
[2018-12-07] MEDS: ESCITALOPRAM 10 MG TAB PO (08:18)
[2018-12-07] MEDS: DULOXETINE 30 MG CAP DR PO (08:18)
[2018-12-07] MEDS: BUPROPION (XL) 150 MG TAB PO (08:18)
[2018-12-07] MEDS: DOCUSATE SODIUM 100 MG CAP PO ×2 (08:18→21:03)
[2018-12-07] MEDS: FUROSEMIDE 40 MG INJ IV (08:19)
[2018-12-07] MEDS: ENOXAPARIN 40 MG/0.4 ML SYG SC (08:20)
[2018-12-07] MEDS: POTASSIUM CHLORIDE 100 ML IVPB (14:41)
[2018-12-07] MEDS: ATORVASTATIN 20 MG TAB PO (21:03)
[2018-12-07] MEDS: INSULIN GLARGINE [LANTus] (100 UNITS/ML) SYG SC (21:05)
[2018-12-08] MEDS: PIPER-TAZO 3.375 GM IV (PMX) 100 ML IVPB ×2 (02:16→09:07)
[2018-12-08] MEDS: ACCU-CHEK XX (02:16)
[2018-12-08 05:40] LABS: ADD MAN DIFF? NO
[2018-12-08 05:43] LABS: BASOPHILS % 0.3 % (0.0-2.0); EOSINOPHILS # 0.2 10^3/ul (0.0-0.5); EOSINOPHILS % 1.3 % (0.0-7.0); HEMATOCRIT 28.2 % (42.0-52.0); HEMOGLOBIN 9.1 g/dl (14.0-18.0); LYMPHOCYTES # 1.4 10^3/ul (0.8-2.9); LYMPHOCYTES % 11.7 % (15.0-51.0); MEAN CORPUSCULAR HEMOGLOBIN 30.2 pg (29.0-33.0); MEAN CORPUSCULAR HGB CONC 32.3 g/dl (32.0-37.0); MEAN CORPUSCULAR VOLUME 93.7 fl (82.0-101.0); MEAN PLATELET VOLUME 10.1 fl (7.4-10.4); MONOCYTE # 0.7 10^3/ul (0.3-0.9); NEUTROPHIL # 9.5 10^3/ul (1.6-7.5); NEUTROPHILS % 79.5 % (39.0-77.0); PLATELET COUNT 205 10^3/UL (140-415); RED BLOOD COUNT 3.01 10^6/ul (4.70-6.10); RED CELL DISTRIBUTION WIDTH 13.9 % (11.5-14.5)
[2018-12-08] MEDS: PANTOPRAZOLE (EC) 40 MG TAB PO (05:58)
[2018-12-08 06:19] LABS: ANION GAP 13 (5-13); BLOOD UREA NITROGEN 21 mg/dl (7-20); CALCIUM 7.9 mg/dl (8.4-10.2); CARBON DIOXIDE 30 mmol/L (21-31); CHLORIDE 102 mmol/L (97-110); CREATININE 0.93 mg/dl (0.61-1.24); Estimated GFR > 60 mL/min (>60); GLUCOSE 176 mg/dl (70-220); INR 1.19; PROTIME 15.2 Sec (11.9-14.9); PT RATIO 1.2; SODIUM 145 mmol/L (135-144)
[2018-12-08] MEDS: INSULIN ASPART [NOVOLOG] 3 ML PEN SC ×2 (08:24→12:38)
[2018-12-08] MEDS: ENOXAPARIN 40 MG/0.4 ML SYG SC (08:25)
[2018-12-08] MEDS: FUROSEMIDE 40 MG INJ IV (08:27)
[2018-12-08] MEDS: DOCUSATE SODIUM 100 MG CAP PO (08:28)
[2018-12-08] MEDS: ESCITALOPRAM 10 MG TAB PO (08:34)
[2018-12-08] MEDS: BUPROPION (XL) 150 MG TAB PO (08:34)
[2018-12-08] MEDS: DULOXETINE 30 MG CAP DR PO (08:34)
[2018-12-08] MEDS: POTASSIUM CHLORIDE (SR) 20 MEQ TAB PO (09:07)
[2018-12-08] MEDS: NYSTATIN SUSP 5 ML CUP PO (14:48)
== END 2018-12-08 16:25 | DRG 480 ==
LOC: ICU 12-01 01:34 → 2NE 12-03 19:05 → E/R 09:10 → 5EC 12:59
PROC: 0QS706Z Reposition Left Upper Femur with Intramedullary Internal Fixation Device, Open Approach (ICD-10-PCS; principal; 2018-11-30 00:40)
PROC: 0BH17EZ Insertion of Endotracheal Airway into Trachea, Via Natural or Artificial Opening (ICD-10-PCS; 2018-11-30 20:17)
PROC: 5A1945Z Respiratory Ventilation, 24-96 Consecutive Hours (ICD-10-PCS; 2018-11-30 20:17)
PROC: 02HV33Z Insertion of Infusion Device into Superior Vena Cava, Percutaneous Approach (ICD-10-PCS; 2018-11-30 20:17)
PROC: 30233K1 Transfusion of Nonautologous Frozen Plasma into Peripheral Vein, Percutaneous Approach (ICD-10-PCS; 2018-11-30 20:17)
PROC: 30233N1 Transfusion of Nonautologous Red Blood Cells into Peripheral Vein, Percutaneous Approach (ICD-10-PCS; 2018-11-30 20:17)
DX: S72.142A Displaced intertrochanteric fracture of left femur, initial encounter for closed fracture (principal); J69.0 Pneumonitis due to inhalation of food and vomit; J96.01 Acute respiratory failure with hypoxia; N17.0 Acute kidney failure with tubular necrosis; D65 Disseminated intravascular coagulation [defibrination syndrome]; D62 Acute posthemorrhagic anemia; B37.0 Candidal stomatitis; E11.65 Type 2 diabetes mellitus with hyperglycemia; E83.51 Hypocalcemia; F39 Unspecified mood [affective] disorder; I10 Essential (primary) hypertension; I25.2 Old myocardial infarction; K21.9 Gastro-esophageal reflux disease without esophagitis; R14.0 Abdominal distension (gaseous); S72.22XA Displaced subtrochanteric fracture of left femur, initial encounter for closed fracture; S72.042A Displaced fracture of base of neck of left femur, initial encounter for closed fracture; S72.352A Displaced comminuted fracture of shaft of left femur, initial encounter for closed fracture; W01.0XXA Fall on same level from slipping, tripping and stumbling without subsequent striking against object, initial encounter; Z79.4 Long term (current) use of insulin; Z79.82 Long term (current) use of aspirin
CPT/HCPCS: 31500; 36430; 36569; 36600; 71045; 71275; 72170; 73500; 73510; 73530; 73550; 74018; 76705; 76775; 76937; 80048; 80076; 81003; 82550; 82570; 82803; 82962; 83036; 83735; 84100; 84300; 84560; 85025; 85362; 85378; 85384; 85610; 85730; 86850; 86900; 86901; 86920; 87081; 89190; 92610; 93005; 94002; 94003; 94770; 96374; 96375; 97110; 97116; 97162; 97167; 97530; 97535; 99285-25

== ENCOUNTER 2019-01-20 13:37 | Emergency (ER) | payer MEDICARE, MEDICAID, BC ==
[2019-01-20 14:31] LABS: ADD MAN DIFF? NO
[2019-01-20 14:35] LABS: MODE ROOM AIR; MetHgb Venous 0.6 %; Sample Type Blood venous; Site VENOUS LINE; Venous COHb 0.3 %; Venous Fraction OxyHgb 39.1 %; Venous Oxygen Sat 39.5 mmHG (55.0-75.0); Venous Total Hemglobin 9.7 g/dl
[2019-01-20 14:36] LABS: WHITE BLOOD COUNT 8.1 10^3/ul (4.8-10.8)
[2019-01-20 14:36] LABS: BASOPHIL # 0.1 10^3/ul (0.0-0.1); BASOPHILS % 0.7 % (0.0-2.0); EOSINOPHILS # 0.2 10^3/ul (0.0-0.5); HEMATOCRIT 28.9 % (42.0-52.0); HEMOGLOBIN 8.7 g/dl (14.0-18.0); LYMPHOCYTES # 2.3 10^3/ul (0.8-2.9); LYMPHOCYTES % 28.2 % (15.0-51.0); MEAN CORPUSCULAR HEMOGLOBIN 28.2 pg (29.0-33.0); MEAN CORPUSCULAR HGB CONC 30.1 g/dl (32.0-37.0); MEAN CORPUSCULAR VOLUME 93.5 fl (82.0-101.0); MEAN PLATELET VOLUME 8.9 fl (7.4-10.4); MONOCYTE # 1.1 10^3/ul (0.3-0.9); MONOCYTES % 13.8 % (0.0-11.0); NEUTROPHIL # 4.3 10^3/ul (1.6-7.5); NEUTROPHILS % 53.8 % (39.0-77.0); PLATELET COUNT 283 10^3/UL (140-415); RED BLOOD COUNT 3.09 10^6/ul (4.70-6.10); RED CELL DISTRIBUTION WIDTH 15.2 % (11.5-14.5)
[2019-01-20] MEDS: SOD CHLORIDE 0.9% 1,000 ML IV (14:42)
[2019-01-20 14:54] LABS: ANION GAP 7 (5-13); BLOOD UREA NITROGEN 45 mg/dl (7-20); CALCIUM 8.1 mg/dl (8.4-10.2); CARBON DIOXIDE 25 mmol/L (21-31); CHLORIDE 105 mmol/L (97-110); Estimated GFR 50 mL/min (>60); GLUCOSE 292 mg/dl (70-220); MAGNESIUM 2.1 mg/dl (1.7-2.5); PHOSPHORUS 4.3 mg/dl (2.5-4.9); POTASSIUM 4.9 mmol/L (3.5-5.1); SODIUM 137 mmol/L (135-144)
[2019-01-20 15:01] LABS: AADO2 Arterial 43.1 mmHg (7.0-24.0); Allen Test ACCEPTAB; Arterial Base Excess 0 mmol/L (-3.0-3); Arterial Blood Gas Oxygen Sat 91.2 mmHG (95.0-98.0); Arterial COHb 0.3 % (0.0-3.0); Arterial Fraction of Oxyhgb 90.7 % (93.0-99.0); Arterial HCO3 23.9 mmol/L (22.0-26.0); Arterial MetHb 0.3 % (0.0-1.5); Arterial pCO2 35.6 mmhg (35-45); MODE ROOM AIR; Site Right Radial
[2019-01-20] MEDS: INSULIN LISPRO 100 UNIT/ML VIAL SC (16:41)
== END 2019-01-20 20:10 | disposition home or self-care (01) ==
LOC: E/R 13:37
DX: E11.65 Type 2 diabetes mellitus with hyperglycemia (principal); I10 Essential (primary) hypertension; Z79.82 Long term (current) use of aspirin; Z79.4 Long term (current) use of insulin
CPT/HCPCS: 36415; 36600; 71045; 73550; 80048; 82803; 82962; 83735; 84100; 85025; 96372; 99284-25

== ENCOUNTER 2019-04-02 00:38 | Inpatient (IN) | payer OTHER, MEDICAID, MEDICARE ==
[2019-04-02 01:32] LABS: ADD MAN DIFF? NO
[2019-04-02 01:33] LABS: BASOPHIL # 0.1 10^3/ul (0.0-0.1); BASOPHILS % 0.8 % (0.0-2.0); EOSINOPHILS # 0.2 10^3/ul (0.0-0.5); EOSINOPHILS % 2.3 % (0.0-7.0); HEMATOCRIT 27.1 % (42.0-52.0); HEMOGLOBIN 8.2 g/dl (14.0-18.0); LYMPHOCYTES # 1.4 10^3/ul (0.8-2.9); LYMPHOCYTES % 21.1 % (15.0-51.0); MEAN CORPUSCULAR HEMOGLOBIN 29.5 pg (29.0-33.0); MEAN CORPUSCULAR HGB CONC 30.3 g/dl (32.0-37.0); MEAN CORPUSCULAR VOLUME 97.5 fl (82.0-101.0); MEAN PLATELET VOLUME 9.2 fl (7.4-10.4); MONOCYTE # 0.7 10^3/ul (0.3-0.9); MONOCYTES % 11.4 % (0.0-11.0); NEUTROPHIL # 4.1 10^3/ul (1.6-7.5); NEUTROPHILS % 63.9 % (39.0-77.0); PLATELET COUNT 281 10^3/UL (140-415); RED BLOOD COUNT 2.78 10^6/ul (4.70-6.10); RED CELL DISTRIBUTION WIDTH 17.5 % (11.5-14.5)
[2019-04-02 01:33] LABS: WHITE BLOOD COUNT 6.4 10^3/ul (4.8-10.8)
[2019-04-02 01:35] LABS: AADO2 Arterial 126.9 mmHg (7.0-24.0); Allen Test ACCEPTAB; Arterial Base Excess 1.3 mmol/L (-3.0-3); Arterial Blood Gas Oxygen Sat 87.2 mmHG (95.0-98.0); Arterial COHb 0.2 % (0.0-3.0); Arterial Fraction of Oxyhgb 86.8 % (93.0-99.0); Arterial HCO3 26.3 mmol/L (22.0-26.0); Arterial MetHb 0.3 % (0.0-1.5); Arterial pCO2 43.6 mmhg (35-45); MODE NASAL CANNULA; Site Right Radial
[2019-04-02 01:52] LABS: ALANINE AMINOTRANSFERASE 20 IU/L (13-69); ALBUMIN/GLOBULIN RATIO 0.62; ALKALINE PHOSPHATASE 138 IU/L (42-121); ANION GAP 6 (5-13); ASPARTATE AMINO TRANSFERASE 22 IU/L (15-46); BILIRUBIN,INDIRECT 0.4 mg/dl (0-1.1); BILIRUBIN,TOTAL 0.4 mg/dl (0.2-1.3); BLOOD UREA NITROGEN 35 mg/dl (7-20); CALCIUM 8.2 mg/dl (8.4-10.2); CARBON DIOXIDE 27 mmol/L (21-31); CHLORIDE 110 mmol/L (97-110); CREATININE 1.07 mg/dl (0.61-1.24); Estimated GFR > 60 mL/min (>60); GLUCOSE 169 mg/dl (70-220); POTASSIUM 4.5 mmol/L (3.5-5.1); SODIUM 143 mmol/L (135-144); TOTAL PROTEIN 7.8 g/dl (6.1-8.1)
[2019-04-02 01:53] LABS: INR 1.14; PROTIME 14.7 Sec (11.9-14.9); PT RATIO 1.1
[2019-04-02 02:03] LABS: TROPONIN-I < 0.012 ng/ml (0.000-0.120)
[2019-04-02] MEDS: SOD CHLORIDE 0.9% 100 ML (02:55)
[2019-04-02] MEDS: IODIXANOL LOCM 100 ML BTL (02:55)
[2019-04-02 02:56] LABS: ADD UMIC YES; UR ASCORBIC ACID NEGATIVE (NEGATIVE); UR BACTERIA FEW /HPF (NONE SEEN); UR BILIRUBIN (Dip) NEGATIVE (NEGATIVE); UR BLOOD (Dip) 2+ mg/dL (NEGATIVE); UR CLARITY CLOUDY (CLEAR); UR COLOR YELLOW (YELLOW); UR GLUCOSE (Dip) NEGATIVE (NEGATIVE); UR KETONES (Dip) NEGATIVE (NEGATIVE); UR LEUKOCYTE ESTERASE (Dip) NEGATIVE Leu/ul (NEGATIVE); UR MUCUS FEW /HPF (NONE SEEN); UR NITRITE (Dip) NEGATIVE (NEGATIVE); UR RBC 15 /HPF (0-5); UR SPECIFIC GRAVITY (Dip) 1.019 (1.003-1.030); UR TOTAL PROTEIN (Dip) 3+ mg/dl (NEGATIVE); UR UROBILINOGEN (Dip) NEGATIVE (NEGATIVE); UR WBC 2 /HPF (0-5)
[2019-04-02] MEDS: SOD CHLORIDE 0.9% 1,000 ML IV (03:33)
[2019-04-02 03:44] LABS: B-TYPE NATRIURETIC PEPTIDE 6210 PG/ML (0-125)
[2019-04-02] MEDS ORDERED: ONDANSETRON 4 MG INJ IV (05:00)
[2019-04-02] MEDS ORDERED: DOCUSATE SODIUM 100 MG CAP PO (05:00)
[2019-04-02] MEDS ORDERED: NACL 0.9% 3 ML SYG IV (05:00)
[2019-04-02] MEDS ORDERED: MECLIZINE 25 MG TAB PO (05:00)
[2019-04-02] MEDS ORDERED: LORAZEPAM 0.5 MG TAB PO (05:00)
[2019-04-02] MEDS ORDERED: ACETAMINOPHEN 325 MG TAB PO ×2 (05:00)
[2019-04-02] MEDS ORDERED: BISACODYL (EC) 5 MG TAB PO (05:00)
[2019-04-02] MEDS: FUROSEMIDE 40 MG INJ IV ×3 (05:04→20:40)
[2019-04-02] MEDS ORDERED: MECLIZINE 12.5 MG TAB PO (05:11)
[2019-04-02] MEDS: PANTOPRAZOLE (EC) 40 MG TAB PO (05:53)
[2019-04-02] MEDS: HEPARIN 5,000 UNIT/1 ML VIAL SC ×3 (05:54→22:24)
[2019-04-02] MEDS ORDERED: GLUCOSE GEL 15 GRAM TUBE BUCCAL (07:30)
[2019-04-02] MEDS ORDERED: GLUCAGON 1 MG INJ IM (07:30)
[2019-04-02] MEDS ORDERED: IPRATROPIUM (NEB) 0.5 MG/2.5 ML AMP HHN (07:30)
[2019-04-02] MEDS ORDERED: DEXTROSE 50% 50 ML SYRINGE IV ×2 (07:30)
[2019-04-02] MEDS ORDERED: GLUCOSE GEL 15 GRAM TUBE PO ×2 (07:30)
[2019-04-02] MEDS ORDERED: LEVALBUTEROL (NEB) 1.25 MG/0.5 ML AMP HHN (07:30)
[2019-04-02] MEDS ORDERED: NON-FORMULARY/PATIENT OWN MED (Omeprazole* 20 MG) PO (09:00)
[2019-04-02] MEDS: LISINOPRIL 5 MG TAB PO (09:29)
[2019-04-02] MEDS: BUPROPION (XL) 150 MG TAB PO (09:29)
[2019-04-02] MEDS: DOXYCYCLINE 100 MG TAB PO ×2 (09:29→20:39)
[2019-04-02] MEDS: DULOXETINE 30 MG CAP DR PO (09:29)
[2019-04-02] MEDS: ASPIRIN (EC) 81 MG TAB PO (09:37)
[2019-04-02] MEDS: RISPERIDONE 1 MG TAB PO (20:38)
[2019-04-02] MEDS: INSULIN GLARGINE [LANTus] (100 UNITS/ML) SYG SC (20:38)
[2019-04-02] MEDS: ATORVASTATIN 20 MG TAB PO (20:38)
[2019-04-02] MEDS: MELATONIN 3 MG TABLET PO (20:39)
[2019-04-02] MEDS ORDERED: INSULIN GLARGINE [LANtus] 3 ML PEN SC (21:00)
[2019-04-02] MEDS ORDERED: MELATONIN 9 MG PO (21:00)
[2019-04-03 05:29] LABS: ADD MAN DIFF? NO
[2019-04-03 05:39] LABS: BASOPHILS % 0.8 % (0.0-2.0); EOSINOPHILS # 0.2 10^3/ul (0.0-0.5); EOSINOPHILS % 3.5 % (0.0-7.0); HEMOGLOBIN 7.6 g/dl (14.0-18.0); LYMPHOCYTES # 1.1 10^3/ul (0.8-2.9); LYMPHOCYTES % 20.7 % (15.0-51.0); MEAN CORPUSCULAR HEMOGLOBIN 29.8 pg (29.0-33.0); MEAN CORPUSCULAR HGB CONC 30.4 g/dl (32.0-37.0); MEAN PLATELET VOLUME 9.1 fl (7.4-10.4); MONOCYTE # 0.7 10^3/ul (0.3-0.9); MONOCYTES % 13.9 % (0.0-11.0); NEUTROPHIL # 3.1 10^3/ul (1.6-7.5); NEUTROPHILS % 60.7 % (39.0-77.0); PLATELET COUNT 250 10^3/UL (140-415); RED BLOOD COUNT 2.55 10^6/ul (4.70-6.10); RED CELL DISTRIBUTION WIDTH 17.6 % (11.5-14.5)
[2019-04-03 05:39] LABS: WHITE BLOOD COUNT 5.2 10^3/ul (4.8-10.8)
[2019-04-03 05:53] LABS: IRON 34 ug/dl (35-150)
[2019-04-03 05:56] LABS: ALANINE AMINOTRANSFERASE 16 IU/L (13-69); ALBUMIN 2.7 g/dl (3.3-4.9); ALBUMIN/GLOBULIN RATIO 0.65; ALKALINE PHOSPHATASE 106 IU/L (42-121); ANION GAP 4 (5-13); ASPARTATE AMINO TRANSFERASE 14 IU/L (15-46); BILIRUBIN,INDIRECT 0.3 mg/dl (0-1.1); BILIRUBIN,TOTAL 0.3 mg/dl (0.2-1.3); BLOOD UREA NITROGEN 35 mg/dl (7-20); CALCIUM 8.3 mg/dl (8.4-10.2); CARBON DIOXIDE 31 mmol/L (21-31); CHLORIDE 108 mmol/L (97-110); CHOL/HDL RATIO 3.7 RATIO; CHOLESTEROL 108 mg/dl (100-200); CREATININE 1.35 mg/dl (0.61-1.24); Estimated GFR 53 mL/min (>60); GLUCOSE 144 mg/dl (70-220); HDL CHOLESTEROL 29 mg/dl (30-78); LDL CHOLESTEROL,CALCULATED 69 mg/dl; MAGNESIUM 2.1 mg/dl (1.7-2.5); POTASSIUM 4.2 mmol/L (3.5-5.1); SODIUM 143 mmol/L (135-144); TOTAL PROTEIN 6.8 g/dl (6.1-8.1); TRIGLYCERIDES 51 mg/dl (0-149)
[2019-04-03 06:03] LABS: % IRON SATURATION 15 % SAT (22-52); TOTAL IRON BINDING CAPACITY 220 ug/dl (241-421)
[2019-04-03] MEDS: PANTOPRAZOLE (EC) 40 MG TAB PO (07:01)
[2019-04-03] MEDS: HEPARIN 5,000 UNIT/1 ML VIAL SC (07:03)
[2019-04-03 07:33] LABS: HEMOGLOBIN A1C 7.3 % (0-5.9)
[2019-04-03] MEDS: DOXYCYCLINE 100 MG TAB PO ×2 (08:15→21:32)
[2019-04-03] MEDS: BUPROPION (XL) 150 MG TAB PO (08:15)
[2019-04-03] MEDS: ASPIRIN (EC) 81 MG TAB PO (08:15)
[2019-04-03] MEDS: DULOXETINE 30 MG CAP DR PO (08:15)
[2019-04-03] MEDS: FUROSEMIDE 40 MG INJ IV (08:16)
[2019-04-03] MEDS: LISINOPRIL 5 MG TAB PO (08:16)
[2019-04-03] MEDS: FUROSEMIDE 20 MG INJ IV ×2 (09:00→17:37)
[2019-04-03] MEDS: SOD FERRIC GLUC COMPLX 125 MG in SOD CHLORIDE 0.9% 100 ML IVPB (12:09)
[2019-04-03 19:15] LABS: TROPONIN-I < 0.012 ng/ml (0.000-0.120)
[2019-04-03] MEDS: ATORVASTATIN 20 MG TAB PO (21:32)
[2019-04-03] MEDS: RISPERIDONE 1 MG TAB PO (21:33)
[2019-04-03] MEDS: MELATONIN 3 MG TABLET PO (21:33)
[2019-04-03] MEDS: INSULIN GLARGINE [LANTus] (100 UNITS/ML) SYG SC (21:36)
[2019-04-04 01:18] LABS: TROPONIN-I < 0.012 ng/ml (0.000-0.120)
[2019-04-04 05:59] LABS: ADD MAN DIFF? NO
[2019-04-04] MEDS: FUROSEMIDE 20 MG INJ IV ×2 (06:04→17:32)
[2019-04-04] MEDS: PANTOPRAZOLE (EC) 40 MG TAB PO (06:04)
[2019-04-04 06:06] LABS: BASOPHILS % 0.4 % (0.0-2.0); EOSINOPHILS # 0.3 10^3/ul (0.0-0.5); EOSINOPHILS % 5.5 % (0.0-7.0); HEMATOCRIT 25.6 % (42.0-52.0); HEMOGLOBIN 7.7 g/dl (14.0-18.0); LYMPHOCYTES # 1.1 10^3/ul (0.8-2.9); LYMPHOCYTES % 22.9 % (15.0-51.0); MEAN CORPUSCULAR HEMOGLOBIN 29.8 pg (29.0-33.0); MEAN CORPUSCULAR HGB CONC 30.1 g/dl (32.0-37.0); MEAN CORPUSCULAR VOLUME 99.2 fl (82.0-101.0); MEAN PLATELET VOLUME 9.3 fl (7.4-10.4); MONOCYTE # 0.7 10^3/ul (0.3-0.9); NEUTROPHIL # 2.7 10^3/ul (1.6-7.5); PLATELET COUNT 247 10^3/UL (140-415); RED BLOOD COUNT 2.58 10^6/ul (4.70-6.10); RED CELL DISTRIBUTION WIDTH 17.7 % (11.5-14.5)
[2019-04-04 06:06] LABS: WHITE BLOOD COUNT 4.8 10^3/ul (4.8-10.8)
[2019-04-04 06:37] LABS: TROPONIN-I < 0.012 ng/ml (0.000-0.120)
[2019-04-04 06:41] LABS: ALBUMIN 2.5 g/dl (3.3-4.9); ANION GAP 4 (5-13); BLOOD UREA NITROGEN 34 mg/dl (7-20); CALCIUM 8.4 mg/dl (8.4-10.2); CARBON DIOXIDE 32 mmol/L (21-31); CHLORIDE 107 mmol/L (97-110); CREATININE 1.24 mg/dl (0.61-1.24); GLUCOSE 98 mg/dl (70-220); PHOSPHORUS 4.9 mg/dl (2.5-4.9); POTASSIUM 4.4 mmol/L (3.5-5.1); SODIUM 143 mmol/L (135-144)
[2019-04-04] MEDS: AMLODIPINE 5 MG TAB PO ×2 (09:00→12:19)
[2019-04-04] MEDS: DULOXETINE 30 MG CAP DR PO ×2 (09:00→12:20)
[2019-04-04] MEDS: ASPIRIN (EC) 81 MG TAB PO ×2 (09:00→12:19)
[2019-04-04] MEDS: DOXYCYCLINE 100 MG TAB PO ×3 (09:00→20:54)
[2019-04-04] MEDS: BUPROPION (XL) 150 MG TAB PO ×2 (09:00→12:18)
[2019-04-04] MEDS: LIDOCAINE 1% (MPF) 5 ML VIAL (10:25)
[2019-04-04] MEDS: SOD FERRIC GLUC COMPLX 125 MG in SOD CHLORIDE 0.9% 100 ML IVPB (12:18)
[2019-04-04 12:46] LABS: TROPONIN-I < 0.012 ng/ml (0.000-0.120)
[2019-04-04 19:44] LABS: TROPONIN-I < 0.012 ng/ml (0.000-0.120)
[2019-04-04] MEDS: morphine 2 MG INJ IV (20:53)
[2019-04-04] MEDS: MELATONIN 3 MG TABLET PO (20:54)
[2019-04-04] MEDS: RISPERIDONE 1 MG TAB PO (20:54)
[2019-04-04] MEDS: ATORVASTATIN 20 MG TAB PO (20:54)
[2019-04-04] MEDS: INSULIN GLARGINE [LANTus] (100 UNITS/ML) SYG SC (21:10)
[2019-04-05 01:27] LABS: TROPONIN-I < 0.012 ng/ml (0.000-0.120)
[2019-04-05] MEDS: PANTOPRAZOLE (EC) 40 MG TAB PO (06:10)
[2019-04-05 06:11] LABS: ADD MAN DIFF? NO
[2019-04-05 06:14] LABS: BASOPHILS % 0.6 % (0.0-2.0); EOSINOPHILS # 0.3 10^3/ul (0.0-0.5); EOSINOPHILS % 5.4 % (0.0-7.0); HEMATOCRIT 25.6 % (42.0-52.0); HEMOGLOBIN 7.6 g/dl (14.0-18.0); LYMPHOCYTES % 19.2 % (15.0-51.0); MEAN CORPUSCULAR HEMOGLOBIN 29.2 pg (29.0-33.0); MEAN CORPUSCULAR HGB CONC 29.7 g/dl (32.0-37.0); MEAN CORPUSCULAR VOLUME 98.5 fl (82.0-101.0); MEAN PLATELET VOLUME 9.3 fl (7.4-10.4); MONOCYTE # 0.8 10^3/ul (0.3-0.9); MONOCYTES % 15.3 % (0.0-11.0); NEUTROPHILS % 59.1 % (39.0-77.0); PLATELET COUNT 229 10^3/UL (140-415); RED CELL DISTRIBUTION WIDTH 17.4 % (11.5-14.5)
[2019-04-05 06:14] LABS: WHITE BLOOD COUNT 5.2 10^3/ul (4.8-10.8)
[2019-04-05] MEDS: FUROSEMIDE 20 MG INJ IV ×2 (06:15→09:38)
[2019-04-05 06:58] LABS: ALBUMIN 2.6 g/dl (3.3-4.9); ANION GAP 3 (5-13); BLOOD UREA NITROGEN 32 mg/dl (7-20); CALCIUM 8.3 mg/dl (8.4-10.2); CARBON DIOXIDE 32 mmol/L (21-31); CHLORIDE 106 mmol/L (97-110); CREATININE 1.32 mg/dl (0.61-1.24); GLUCOSE 89 mg/dl (70-220); PHOSPHORUS 4.5 mg/dl (2.5-4.9); POTASSIUM 4.4 mmol/L (3.5-5.1); SODIUM 141 mmol/L (135-144)
[2019-04-05] MEDS: DOXYCYCLINE 100 MG TAB PO ×2 (08:35→20:37)
[2019-04-05] MEDS: BUPROPION (XL) 150 MG TAB PO (08:35)
[2019-04-05] MEDS: AMLODIPINE 5 MG TAB PO (08:36)
[2019-04-05] MEDS: ASPIRIN (EC) 81 MG TAB PO (08:36)
[2019-04-05] MEDS: DULOXETINE 30 MG CAP DR PO (08:37)
[2019-04-05] MEDS: LIDOCAINE 1% (MPF) 5 ML VIAL (13:59)
[2019-04-05] MEDS: SOD FERRIC GLUC COMPLX 125 MG in SOD CHLORIDE 0.9% 100 ML IVPB (15:16)
[2019-04-05] MEDS: ATORVASTATIN 20 MG TAB PO (20:38)
[2019-04-05] MEDS: RISPERIDONE 1 MG TAB PO (20:38)
[2019-04-05] MEDS: MELATONIN 3 MG TABLET PO (20:38)
[2019-04-05] MEDS: INSULIN GLARGINE [LANTus] (100 UNITS/ML) SYG SC (21:01)
[2019-04-06] MEDS: PANTOPRAZOLE (EC) 40 MG TAB PO (05:35)
[2019-04-06 05:52] LABS: ADD MAN DIFF? NO
[2019-04-06 05:59] LABS: BASOPHILS % 0.4 % (0.0-2.0); EOSINOPHILS # 0.3 10^3/ul (0.0-0.5); EOSINOPHILS % 6.7 % (0.0-7.0); HEMATOCRIT 26.3 % (42.0-52.0); LYMPHOCYTES # 1.1 10^3/ul (0.8-2.9); LYMPHOCYTES % 24.5 % (15.0-51.0); MEAN CORPUSCULAR HEMOGLOBIN 30.2 pg (29.0-33.0); MEAN CORPUSCULAR HGB CONC 30.4 g/dl (32.0-37.0); MEAN CORPUSCULAR VOLUME 99.2 fl (82.0-101.0); MEAN PLATELET VOLUME 9.2 fl (7.4-10.4); MONOCYTE # 0.6 10^3/ul (0.3-0.9); MONOCYTES % 13.4 % (0.0-11.0); NEUTROPHIL # 2.5 10^3/ul (1.6-7.5); NEUTROPHILS % 54.8 % (39.0-77.0); PLATELET COUNT 214 10^3/UL (140-415); RED BLOOD COUNT 2.65 10^6/ul (4.70-6.10); RED CELL DISTRIBUTION WIDTH 17.2 % (11.5-14.5)
[2019-04-06 05:59] LABS: WHITE BLOOD COUNT 4.5 10^3/ul (4.8-10.8)
[2019-04-06 06:26] LABS: ALBUMIN 2.6 g/dl (3.3-4.9); ANION GAP 6 (5-13); BLOOD UREA NITROGEN 30 mg/dl (7-20); CALCIUM 8.1 mg/dl (8.4-10.2); CARBON DIOXIDE 34 mmol/L (21-31); CHLORIDE 105 mmol/L (97-110); CREATININE 1.29 mg/dl (0.61-1.24); GLUCOSE 106 mg/dl (70-220); PHOSPHORUS 4.4 mg/dl (2.5-4.9); POTASSIUM 4.4 mmol/L (3.5-5.1); SODIUM 145 mmol/L (135-144)
[2019-04-06] MEDS: BUPROPION (XL) 150 MG TAB PO (08:42)
[2019-04-06] MEDS: ASPIRIN (EC) 81 MG TAB PO (08:42)
[2019-04-06] MEDS: AMLODIPINE 5 MG TAB PO (08:42)
[2019-04-06] MEDS: FUROSEMIDE 20 MG INJ IV (08:42)
[2019-04-06] MEDS: DULOXETINE 30 MG CAP DR PO (08:42)
[2019-04-06] MEDS: DOXYCYCLINE 100 MG TAB PO ×2 (08:42→20:34)
[2019-04-06] MEDS: INSULIN ASPART [NOVOLOG] 3 ML PEN SC ×2 (17:59→20:42)
[2019-04-06] MEDS: ATORVASTATIN 20 MG TAB PO (20:33)
[2019-04-06] MEDS: MELATONIN 3 MG TABLET PO (20:33)
[2019-04-06] MEDS: RISPERIDONE 1 MG TAB PO (20:33)
[2019-04-06] MEDS: INSULIN GLARGINE [LANTus] (100 UNITS/ML) SYG SC (20:43)
[2019-04-07] MEDS: ACCU-CHEK XX (02:00)
[2019-04-07 05:57] LABS: ADD MAN DIFF? NO; BASOPHILS % 0.7 % (0.0-2.0); EOSINOPHILS # 0.3 10^3/ul (0.0-0.5); EOSINOPHILS % 4.8 % (0.0-7.0); HEMATOCRIT 27.1 % (42.0-52.0); HEMOGLOBIN 8.2 g/dl (14.0-18.0); LYMPHOCYTES # 1.3 10^3/ul (0.8-2.9); LYMPHOCYTES % 23.7 % (15.0-51.0); MEAN CORPUSCULAR HEMOGLOBIN 29.7 pg (29.0-33.0); MEAN CORPUSCULAR HGB CONC 30.3 g/dl (32.0-37.0); MEAN CORPUSCULAR VOLUME 98.2 fl (82.0-101.0); MEAN PLATELET VOLUME 9.3 fl (7.4-10.4); MONOCYTE # 0.6 10^3/ul (0.3-0.9); MONOCYTES % 11.7 % (0.0-11.0); NEUTROPHIL # 3.2 10^3/ul (1.6-7.5); NEUTROPHILS % 58.5 % (39.0-77.0); PLATELET COUNT 225 10^3/UL (140-415); RED BLOOD COUNT 2.76 10^6/ul (4.70-6.10); RED CELL DISTRIBUTION WIDTH 17.2 % (11.5-14.5)
[2019-04-07 05:57] LABS: WHITE BLOOD COUNT 5.4 10^3/ul (4.8-10.8)
[2019-04-07] MEDS: PANTOPRAZOLE (EC) 40 MG TAB PO (06:12)
[2019-04-07 06:41] LABS: ANION GAP 7 (5-13); BLOOD UREA NITROGEN 25 mg/dl (7-20); CALCIUM 8.5 mg/dl (8.4-10.2); CARBON DIOXIDE 33 mmol/L (21-31); CHLORIDE 105 mmol/L (97-110); CREATININE 1.23 mg/dl (0.61-1.24); Estimated GFR 59 mL/min (>60); GLUCOSE 152 mg/dl (70-220); PHOSPHORUS 4.1 mg/dl (2.5-4.9); POTASSIUM 4.3 mmol/L (3.5-5.1); SODIUM 145 mmol/L (135-144)
[2019-04-07] MEDS: INSULIN ASPART [NOVOLOG] 3 ML PEN SC ×2 (08:00→12:05)
[2019-04-07] MEDS: DULOXETINE 30 MG CAP DR PO (08:21)
[2019-04-07] MEDS: BUPROPION (XL) 150 MG TAB PO (08:22)
[2019-04-07] MEDS: ASPIRIN (EC) 81 MG TAB PO (08:22)
[2019-04-07] MEDS: AMLODIPINE 5 MG TAB PO (08:22)
[2019-04-07] MEDS: FUROSEMIDE 20 MG INJ IV (08:23)
== END 2019-04-07 16:57 | DRG 291 ==
LOC: E/R 00:38 → 6WM 04-03 17:17
PROC: 4A033R1 Measurement of Arterial Saturation, Peripheral, Percutaneous Approach (ICD-10-PCS; 2019-04-02)
PROC: 0W993ZZ Drainage of Right Pleural Cavity, Percutaneous Approach (ICD-10-PCS; principal; 2019-04-04)
PROC: 0W9B3ZZ Drainage of Left Pleural Cavity, Percutaneous Approach (ICD-10-PCS; 2019-04-05)
DX: I13.0 Hypertensive heart and chronic kidney disease with heart failure and stage 1 through stage 4 chronic kidney disease, or unspecified chronic kidney disease (principal); I50.33 Acute on chronic diastolic (congestive) heart failure; N17.9 Acute kidney failure, unspecified; J90 Pleural effusion, not elsewhere classified; E11.22 Type 2 diabetes mellitus with diabetic chronic kidney disease; N18.9 Chronic kidney disease, unspecified; J44.9 Chronic obstructive pulmonary disease, unspecified; I25.10 Atherosclerotic heart disease of native coronary artery without angina pectoris; E78.5 Hyperlipidemia, unspecified; D64.9 Anemia, unspecified; F39 Unspecified mood [affective] disorder; Z86.718 Personal history of other venous thrombosis and embolism; Z79.4 Long term (current) use of insulin; Z79.82 Long term (current) use of aspirin; Z87.01 Personal history of pneumonia (recurrent)
CPT/HCPCS: 32555; 36415; 36600; 71045; 71275; 76942; 80048; 80053; 80061; 80069; 81001; 82803; 82962; 83036; 83540; 83605; 83735; 83880; 84100; 84443; 84484; 85025; 85610; 85730; 87040-91; 87086; 93005; 93306; 93970; 97161; 99285-25

== ENCOUNTER 2019-06-08 14:57 | Emergency (ER) | payer OTHER ==
[2019-06-08 15:53] LABS: ADD MAN DIFF? NO
[2019-06-08 15:58] LABS: BASOPHIL # 0.1 10^3/ul (0.0-0.1); EOSINOPHILS # 0.1 10^3/ul (0.0-0.5); EOSINOPHILS % 2.3 % (0.0-7.0); HEMATOCRIT 34.4 % (42.0-52.0); LYMPHOCYTES # 1.5 10^3/ul (0.8-2.9); LYMPHOCYTES % 24.6 % (15.0-51.0); MEAN CORPUSCULAR HEMOGLOBIN 31.5 pg (29.0-33.0); MEAN CORPUSCULAR VOLUME 98.6 fl (82.0-101.0); MEAN PLATELET VOLUME 9.4 fl (7.4-10.4); MONOCYTE # 0.7 10^3/ul (0.3-0.9); MONOCYTES % 10.9 % (0.0-11.0); NEUTROPHIL # 3.6 10^3/ul (1.6-7.5); NEUTROPHILS % 60.7 % (39.0-77.0); PLATELET COUNT 274 10^3/UL (140-415); RED BLOOD COUNT 3.49 10^6/ul (4.70-6.10); RED CELL DISTRIBUTION WIDTH 13.1 % (11.5-14.5)
[2019-06-08 16:04] LABS: ALANINE AMINOTRANSFERASE 13 IU/L (13-69); ALBUMIN 3.2 g/dl (3.3-4.9); ALBUMIN/GLOBULIN RATIO 0.68; ALKALINE PHOSPHATASE 136 IU/L (42-121); ANION GAP 7 (5-13); ASPARTATE AMINO TRANSFERASE 20 IU/L (15-46); BILIRUBIN,INDIRECT 0.4 mg/dl (0-1.1); BILIRUBIN,TOTAL 0.4 mg/dl (0.2-1.3); BLOOD UREA NITROGEN 35 mg/dl (7-20); CALCIUM 8.8 mg/dl (8.4-10.2); CARBON DIOXIDE 29 mmol/L (21-31); CHLORIDE 102 mmol/L (97-110); CREATININE 2.16 mg/dl (0.61-1.24); Estimated GFR 31 mL/min (>60); GLUCOSE 237 mg/dl (70-220); POTASSIUM 4.6 mmol/L (3.5-5.1); SODIUM 138 mmol/L (135-144); TOTAL PROTEIN 7.9 g/dl (6.1-8.1)
[2019-06-08 16:17] LABS: B-TYPE NATRIURETIC PEPTIDE 1690 PG/ML (0-125); TROPONIN-I < 0.012 ng/ml (0.000-0.120)
[2019-06-08] MEDS: SOD CHLORIDE 0.9% 250 ML IV (17:04)
== END 2019-06-08 18:04 | disposition home or self-care (01) ==
LOC: E/R 18:04
DX: N28.9 Disorder of kidney and ureter, unspecified (principal); D64.9 Anemia, unspecified; I11.0 Hypertensive heart disease with heart failure; I50.9 Heart failure, unspecified; E11.9 Type 2 diabetes mellitus without complications; I25.10 Atherosclerotic heart disease of native coronary artery without angina pectoris; Z79.4 Long term (current) use of insulin; Z79.82 Long term (current) use of aspirin
CPT/HCPCS: 36415; 70450; 71045; 80053; 83880; 84484; 85025; 93005; 99285-25